=== PATIENT | male | born 2000 | race Caucasian/White ===

== ENCOUNTER 2023-12-31 18:32 | Emergency (ER) | payer MEDICAID ==
[~2023-12-31] VITALS: Ht 172.7 cm; Wt 65.3 kg
[2023-12-31 18:42] VITALS: BP 134/69; PULSE 66; RESP 16; TEMP 98.9; O2SAT 99
[2023-12-31 19:45] LABS: CLARITY URINE CLEAR (CLEAR); COLOR URINE YELLOW (YELLOW); GLUCOSE URINE NEGATIVE (NEGATIVE); KETONES URINE NEGATIVE (NEGATIVE); LEUKOCYTE ESTERASE URINE NEGATIVE (NEGATIVE); NITRITE URINE NEGATIVE (NEGATIVE); OCCULT BLOOD URINE NEGATIVE (NEGATIVE); PROTEIN URINE 1+ (NEGATIVE); SPECIFIC GRAVITY URINE 1.029 (1.005-1.030)
[2023-12-31 20:34] LABS: BACTERIA URINE NONE SEEN; RBC URINE NONE SEEN /hpf (0-2)
[2023-12-31] MEDS: CEFTRIAXONE SODIUM 500MG VIAL IM ONE (20:45)
[2023-12-31] MEDS ORDERED: DOXY100C5 MT (21:22)
[2024-01-03 13:06] LABS: CHLAMYDIA TRACHOMATIS NAA Negative (Negative); NEISSERIA GONORRHOEAE NAA Negative (Negative)
== END 2023-12-31 21:40 | disposition home or self-care (01) ==
LOC: ER 18:32
DX: R59.1 Generalized enlarged lymph nodes (principal)
CPT/HCPCS: 99283; 87491; 87591; 81003; 96372; J0696